=== PATIENT | female | born 1985 | race African-American/Black ===

== ENCOUNTER 2018-06-04 12:42 | Inpatient (IN) | payer OTHER ==
[~2018-06-04] VITALS: Ht 157.5 cm; Wt 86.0 kg
[2018-06-04] MEDS ORDERED: HYDR25TA PO (13:09)
[2018-06-04] MEDS ORDERED: AMLO2.5T3 PO (13:09)
[2018-06-04 16:18] LABS: BASOPHILS % (AUTO) 0.3 % (0.0-2.0); EOSINOPHILS % (AUTO) 0.8 % (1.0-6.0); HEMATOCRIT 40.7 % (36-46); HEMOGLOBIN 13.7 g/dL (12.0-16.0); LYMPHOCYTES # (AUTO) 2.2 K/uL (1.0-4.8); LYMPHOCYTES % (AUTO) 21.3 % (22.0-44.0); MEAN CORPUSCULAR HEMOGLOBIN 28.8 pg (26.0-34.0); MEAN CORPUSCULAR HGB CONC 33.5 G/dL (31.0-37.0); MEAN CORPUSCULAR VOLUME 86 fL (80-100); MONOCYTES # (AUTO) 0.6 K/uL (0.1-1.0); MONOCYTES % (AUTO) 5.7 % (2.0-9.0); NEUTROPHILS # (AUTO) 7.2 K/uL (1.8-7.7); NEUTROPHILS % (AUTO) 71.9 % (40.0-70.0); PLATELET COUNT (AUTO) 267 K/uL (150-450); RED BLOOD CELL COUNT(AUTO) 4.74 MIL/uL (4.00-5.20); RED CELL DISTRIBUTION WIDTH 12.8 % (11.5-14.5)
[2018-06-04] MEDS ORDERED: LORazepam 2 MG/ML VIAL IVP ONE (16:30)
[2018-06-04] MEDS ORDERED: GADOBUTROL 1 MMOL/ML 10 ML VIAL IVP ONE (16:40)
[2018-06-04 16:54] LABS: ALANINE AMINOTRANSFERASE 35 U/L (12-78); ALBUMIN 3.6 g/dL (3.4-5.0); ALKALINE PHOSPHATASE 92 U/L (46-116); ANION GAP 8 mmol/L (8-16); ASPARTATE AMINOTRANSFERASE 26 U/L (15-37); BILIRUBIN,TOTAL 0.4 mg/dL (0.1-1.0); CALCIUM, TOTAL 9.3 mg/dL (8.8-10.5); CARBON DIOXIDE 33 mmol/L (22-29); CHLORIDE 98 mmol/L (98-107); CREATINE KINASE, TOTAL ONLY 144 U/L (26-192); CREATININE 0.73 mg/dL (0.60-1.30); GLOMERULAR FILTR. RATE CALC > 60 mL/min (>60); GLUCOSE,RANDOM 97 mg/dL (70-110); HCG,QUANTITATIVE < 1 mIU/mL (0-6); SODIUM SERUM 139 mmol/L (136-145); TOTAL PROTEIN, SERUM 8.5 g/dL (6.4-8.2); UREA NITROGEN, BLOOD 12 mg/dL (7-18)
[2018-06-04 17:01] LABS: POTASSIUM 2.7 mmol/L (3.5-5.1)
[2018-06-04 17:10] LABS: APPEARANCE,URINE CLEAR (CLEAR); BILIRUBIN,URINE NEGATIVE (NEGATIVE); GLUCOSE, URINE (UA) NEGATIVE (NEGATIVE); KETONES,URINE NEGATIVE (NEGATIVE); LEUKOCYTE ESTERASE ,URINE SMALL (NEGATIVE); NITRATE,URINE NEGATIVE (NEGATIVE); OCCULT BLOOD,URINE SMALL (NEGATIVE); PROTEIN,URINE NEGATIVE (NEGATIVE)
[2018-06-04 17:17] LABS: RBC,URINE 0-2 /HPF (0-2)
[2018-06-04 17:18] LABS: BACTERIA,URINE Few /HPF (None Seen); SQUAMOUS EPITHELIAL CELL,UR Few /LPF (None Seen)
[2018-06-04 17:30] LABS: AMPHET/METH SCREEN,URINE NEGATIVE (NEGATIVE); BARBITURATE SCREEN, URINE NEGATIVE (NEGATIVE); BENZODIAZEPINES SCREEN,URINE NEGATIVE (NEGATIVE); CANNABINOID SCREEN,URINE NEGATIVE (NEGATIVE); COCAINE SCREEN,URINE NEGATIVE (NEGATIVE); METHADONE SCREEN, URINE NEGATIVE (NEGATIVE); OPIATE SCREEN,URINE NEGATIVE (NEGATIVE)
[2018-06-04 17:33] LABS: PHENCYCLIDINE SCREEN,URINE NEGATIVE (NEGATIVE)
[2018-06-04] MEDS ORDERED: ONDANSETRON HCL 4 MG/2 ML VIAL IVP PRN (19:00)
[2018-06-04] MEDS ORDERED: 0.9% SODIUM CHLORIDE 10 ML SYRINGE IVP PRN (19:00)
[2018-06-04] MEDS ORDERED: POTASSIUM CHL 40 MEQ/D5-0.45NS 1,000 ML IV ONE (19:00)
[2018-06-04] MEDS ORDERED: ACETAMINOPHEN 325 MG TABLET PO PRN (19:00)
[2018-06-04 20:59] VITALS: BP 137/77
[2018-06-04 23:16] VITALS: BP 123/77
[2018-06-04] MEDS ORDERED: PNEUMOCOCCAL VACCINE POLYVALENT 0.5 ML VIAL [PPSV23] IM ONE (23:45)
[2018-06-05] MEDS ORDERED: SODIUM CHLORIDE 0.9% 1,000 ML IV ONE (01:05)
[2018-06-05] MEDS: POTASSIUM CHL 10 MEQ/WATER 50 ML IV PRN ×7 (01:29→09:30)
[2018-06-05 04:11] VITALS: BP 132/74
[2018-06-05 05:46] LABS: POTASSIUM 3.2 mmol/L (3.5-5.1)
[2018-06-05] MEDS ORDERED: POTASSIUM CHL 10 MEQ/WATER 50 ML IV PRN (07:45)
[2018-06-05] MEDS ORDERED: ONDANSETRON HCL 4 MG/2 ML VIAL IVP PRN (07:45)
[2018-06-05] MEDS ORDERED: CELECOXIB 100 MG CAPSULE PO PRN (07:45)
[2018-06-05] MEDS ORDERED: ZOLPIDEM TARTRATE 5 MG TABLET PO PRN (07:45)
[2018-06-05] MEDS ORDERED: 0.9% SODIUM CHLORIDE 10 ML SYRINGE IVP PRN (07:45)
[2018-06-05] MEDS ORDERED: ACETAMINOPHEN 325 MG TABLET PO PRN (07:45)
[2018-06-05] MEDS ORDERED: POTASSIUM CHLORIDE 20 MEQ ER TABLET PO PRN (07:45)
[2018-06-05 08:00] VITALS: BP 133/89
[2018-06-05 08:01] LABS: C-REACTIVE PROTEIN QUANT 0.59 mg/dL (0.00-0.30)
[2018-06-05] MEDS: HYDROCHLOROTHIAZIDE 25 MG TABLET PO SCH ×2 (08:33→21:00)
[2018-06-05] MEDS: PANTOPRAZOLE SODIUM 40 MG/VIAL IVP SCH (08:36)
[2018-06-05] MEDS: HEPARIN SODIUM,PORCINE 5,000 UNITS/ML VIAL SQ SCH ×2 (08:37→16:35)
[2018-06-05] MEDS: AmLODIPine BESYLATE 2.5 MG TABLET PO SCH (10:51)
[2018-06-05 11:27] VITALS: BP 142/77
[2018-06-05] MEDS: POTASSIUM CHLORIDE 20 MEQ ER TABLET PO PRN ×2 (13:21→18:42)
[2018-06-05 18:30] LABS: POTASSIUM 3.4 mmol/L (3.5-5.1)
[2018-06-05 19:59] LABS: MAGNESIUM 1.9 mg/dL (1.80-2.40)
[2018-06-05 20:42] VITALS: BP 121/72
[2018-06-06] MEDS: HEPARIN SODIUM,PORCINE 5,000 UNITS/ML VIAL SQ SCH ×2 (00:07→08:14)
[2018-06-06 00:17] VITALS: BP 117/69
[2018-06-06] MEDS: POTASSIUM CHLORIDE 20 MEQ ER TABLET PO PRN (02:45)
[2018-06-06 04:24] VITALS: BP 116/76
[2018-06-06 06:10] LABS: BASOPHILS % (AUTO) 0.6 % (0.0-2.0); EOSINOPHILS % (AUTO) 1.1 % (1.0-6.0); HEMATOCRIT 37.6 % (36-46); HEMOGLOBIN 12.9 g/dL (12.0-16.0); LYMPHOCYTES # (AUTO) 2.5 K/uL (1.0-4.8); MEAN CORPUSCULAR HEMOGLOBIN 29.7 pg (26.0-34.0); MEAN CORPUSCULAR HGB CONC 34.2 G/dL (31.0-37.0); MEAN CORPUSCULAR VOLUME 87 fL (80-100); MONOCYTES # (AUTO) 0.5 K/uL (0.1-1.0); MONOCYTES % (AUTO) 5.9 % (2.0-9.0); NEUTROPHILS # (AUTO) 5.1 K/uL (1.8-7.7); NEUTROPHILS % (AUTO) 62.4 % (40.0-70.0); PLATELET COUNT (AUTO) 235 K/uL (150-450); RED BLOOD CELL COUNT(AUTO) 4.33 MIL/uL (4.00-5.20); RED CELL DISTRIBUTION WIDTH 12.6 % (11.5-14.5)
[2018-06-06 06:31] LABS: ANION GAP 4 mmol/L (8-16); CALCIUM, TOTAL 8.2 mg/dL (8.8-10.5); CARBON DIOXIDE 31 mmol/L (22-29); CHLORIDE 106 mmol/L (98-107); GLOMERULAR FILTR. RATE CALC > 60 mL/min (>60); GLUCOSE,RANDOM 95 mg/dL (70-110); POTASSIUM 3.7 mmol/L (3.5-5.1); SODIUM SERUM 141 mmol/L (136-145); UREA NITROGEN, BLOOD 7 mg/dL (7-18)
[2018-06-06 07:07] VITALS: BP 100/52
[2018-06-06] MEDS: PANTOPRAZOLE SODIUM 40 MG/VIAL IVP SCH (08:13)
[2018-06-06] MEDS: AmLODIPine BESYLATE 2.5 MG TABLET PO SCH (08:23)
[2018-06-06] MEDS: HYDROCHLOROTHIAZIDE 25 MG TABLET PO SCH (08:23)
[2018-06-06 11:08] VITALS: BP 130/74
== END 2018-06-06 13:20 | disposition home or self-care (01) | DRG 425 ==
LOC: EMS 12:43 → 5S 19:45
PROVIDERS: ADMIT Internal Medicine; ATTEND Internal Medicine
PROC: 3E0234Z Introduction of Serum, Toxoid and Vaccine into Muscle, Percutaneous Approach (ICD-10-PCS; principal; 2018-06-04)
DX: E87.6 Hypokalemia (principal); M32.9 Systemic lupus erythematosus, unspecified; F41.9 Anxiety disorder, unspecified; I10 Essential (primary) hypertension; Z91.040 Latex allergy status; Z23 Encounter for immunization
CPT/HCPCS: 70553; 83735; 84132; 85651; 86038; 86140; 86225; 86235; 86255; 87086; 90732; 93005; 96365; 96375; A9585; C9113; G0378; J1644; J2060; J3480; J7030